=== PATIENT | male | born 1955 ===

== ENCOUNTER 2017-06-01 07:30 | Inpatient (IN) | payer OTHER ==
[2017-05-16 09:24] VITALS: BMI 31.1
--- NOTE | 2017-06-15 07:37 | HP ---
HISTORY OF PRESENT ILLNESS: A 62-year-old gentleman severe low back pain for 4 years, on the job accident, 2011. Since then, severe low lumbar pain, difficulty sitting for too long, lying too long, painful left lateral thigh. Denies any weakness or numbness. He has had 3 years of physiotherapy, 6 to 8 different injections in his back, multiple medications. PAST MEDICAL HISTORY: Hypertension. ALLERGIES: NO KNOWN DRUG ALLERGIES. SOCIAL HISTORY: No smoking, no alcohol, no illicit drug use. PERSONAL HISTORY: , 7 children. PHYSICAL EXAMINATION: MUSCULOSKELETAL: He does have good strength throughout. Sensation is grossly intact, 1+ reflexes. Tenderness to palpation in low lumbar spine. Range of motion is limited to extension and flexion. Baseline gait within normal limits. MRI demonstrates significant prolapse and desiccation of L4-L5, bilateral foraminal stenosis. ASSESSMENT: Over several of his visits, I discussed with him the possibility of performing decompression, fixation, and fusion of L4-L5. We went over the nature of the procedure. Potential risks, complications, realistic chances of success and recovery time. I answered all his questions. He fully understood all the above, was interested in proceeding, being admitted now for L4-L5, posterior lumbar interbody fusion. Jadon Stern MD
[2017-06-15] MEDS ORDERED: ceFAZolin IV 1 gm in Dextrose 0 GM/0 ML BAG IVPB ONE (08:52)
[2017-06-15] MEDS ORDERED: Absorbable Gelatin Sponge Size 100 ONE (08:52)
[2017-06-15] MEDS ORDERED: Lidocaine/Epinephrine 1% 1:100000 10 ML IJ ONE (08:53)
[2017-06-15] MEDS ORDERED: Thrombin Topical 5,000 Int Units Spray Kit ONE (08:54)
[2017-06-15] MEDS ORDERED: Bacitracin 50,000 UNIT in Sodium Chloride 0.9% Irrig 1,000 ML IR SCH (09:30)
[2017-06-15] MEDS ORDERED: Bupivacaine Liposomal Inj 20 ml INFIL ONE (09:30)
[2017-06-15] MEDS ORDERED: Remifentanil 1 mg/3 ml Vial IV ONE (09:33)
[2017-06-15] MEDS ORDERED: Propofol 10 mg/ml 1,000 MG/100 ML VIAL ONE ×2 (09:33)
[2017-06-15] MEDS ORDERED: Propofol 10 mg/ml Inj (20 ML) ONE (09:53)
[2017-06-15] MEDS ORDERED: Midazolam 2 MG/2 ML VIAL ONE (09:53)
[2017-06-15] MEDS ORDERED: Phenylephrine 10 mg/ml Inj ONE (09:57)
[2017-06-15] MEDS ORDERED: Succinylcholine Chloride 20 mg/ml Syr (5 ml) IV ONE (09:59)
[2017-06-15] MEDS ORDERED: ceFAZolin IV 2 gm in Dextrose 2 GM/50 ML BAG IVPB ONE (10:12)
[2017-06-15] MEDS ORDERED: Rocuronium 10 mg/ml (5 ml) ONE (10:17)
[2017-06-15] MEDS ORDERED: ePHEDrine 50 mg/ml Inj ONE (11:02)
[2017-06-15] MEDS: Bupivacaine HCl 0.5% PF (10 ml) Inj ONE ×2 (11:13→13:15)
[2017-06-15] MEDS ORDERED: Morphine 4 MG/ML VIAL ONE (13:31)
[2017-06-15] MEDS ORDERED: Labetalol 25mg/5ml Syringe ONE (13:35)
[2017-06-15] MEDS ORDERED: HYDROmorphone 0.5 mg/0.5 ml ISec IVP PRN (14:01)
[2017-06-15] MEDS: Potassium Ch 20mEq in D5-1/2NS 1,000 ML IV SCH (15:00)
--- NOTE | 2017-06-15 15:06 | RAD ---
PROCEDURE: Intraoperative Fluoroscopy. HISTORY: LUMBAR DISC DISPLACEMENT FINDINGS: Fluoroscopic assistance was provided. 43.0 seconds fluoroscopy time utilized during this procedure. Radiation dose = 13.43 mGy. Please refer to the operative report for additional details.
[2017-06-15 21:39] VITALS: RESP 20
[2017-06-16] MEDS: Potassium Ch 20mEq in D5-1/2NS 1,000 ML IV SCH ×3 (00:48→20:45)
--- NOTE | 2017-06-16 08:53 | CP.PCM.PN ---
Subjective - Date & Time of Evaluation Date of Evaluation: 06/16/17 Time of Evaluation: 08:52 - Subjective Subjective: POD 1 doing well c/o inc pain only 5/5 throughout nl sens P OOB PT Objective - Vital Signs/Intake and Output Vital Signs (last 24 hours): Temp Pulse Resp BP Pulse Ox 98.7 F 99 H 20 150/72 96 06/16/17 04:00 06/16/17 04:00 06/16/17 04:00 06/16/17 04:00 06/16/17 04:00 Intake and Output: 06/16/17 06/16/17 06:59 18:59 Intake Total 2070 Output Total 1600 Balance 470 - Medications Medications: Current Medications Acetaminophen (Tylenol 325mg Tab) 650 mg PO Q6 PRN PRN Reason: Fever >100.4 F Home Med (Patient's Own Medication) 1 tab PO DAILY [facility] Hydromorphone/Sodium Chloride (Dilaudid Director [employer] Management) 2.4 mg IV Q4H PRN; Protocol PRN Reason: Pain, severe (8-10) Last Admin: 06/15/17 16:00 Dose: 2.4 mg Potassium Chloride/Dextrose/Sod Cl (Potassium Chl 20 Meq In D5-1/2ns) 1,000 mls @ 100 mls/hr IV .Q10H [facility] Last Admin: 06/16/17 00:48 Dose: 100 mls/hr Pneumococcal Polyvalent Vaccine (Pneumovax 23 Vaccine) 0.5 ml IM .ONCE ONE Stop: 06/18/17 10:01
--- NOTE | 2017-06-16 09:24 | OP ---
PROCEDURE DATE: 06/15/2017. PREOPERATIVE DIAGNOSIS: Lumbar disk derangement. POSTOPERATIVE DIAGNOSIS: Lumbar disk derangement. PROCEDURE: L4-L5 decompression diskectomy, interbody fusion, segmental pedicle screw fixation, posterolateral fusion with iliac autograft. SURGEON: Jadon Stern MD CO-SURGEON: Horace Ashley MD. ANESTHESIA: General endotracheal. ESTIMATED BLOOD LOSS: 300 mL, 125 mL recovered via CellS[facility]. COMPLICATIONS: None. IDENTIFICATION: The patient is status post an accident severe low back pain. He had radiating radicular pain into the left lateral thigh. Imaging work with MRI documented significant disk derangement with large annular tear and significant left foraminal compromise at the L4-L5 level. He failed extensive conservative treatment. He was offered operative intervention by decompression, diskectomy, interbody fusion, and segmental pedicle screw fixation. The nature of the procedure, the rationale behind it, all pertinent potential risks and complications, realistic chance of success were discussed at length, with him in detail through a middle school librarian. All his questions were answered. He fully understood the above and elected to proceed as offered. PROCEDURE: The patient was taken to the operating room. He was hooked up to neurophysiological monitoring. He was carefully intubated, anesthetized and placed on the OR table in a prone position on a Artur frame. Care was taken to protect his face, eyes, endotracheal tube, and all bony prominences. The entire low back region was scrubbed, painted, and draped in the usual sterile manner. Incision was localized with lateral fluoroscopy, traced out overlying the spinous processes of L3 down to L5. After prepping and draping, the incision was made with a #10 blade knife carried down to the level of the fascia. The Bovie cautery was used to incise the fascia, strip the paraspinal muscles, the spinous processes and laminae of L4 and L5. Confirmatory x-ray was taken. The exposure was widened out laterally to expose the entire upgoing and downgoing pars and the intervening entire 4, 5 to 6. Bleeding controlled throughout with Bovie cautery and thrombinated Gelfoam. We exposed down to just at the beginning of the take off to the transverse processes. At this point, we performed bone harvestation. A 5-gauge trocar was inserted directly into the right superior posterior iliac crest approximately 90 mL of bone marrow aspirated. This bone marrow was then spun down to obtain mesenchymal cells, which were then later used in the fusion, impregnated primarily on collagen hydroxyapatite sponges. The decompression was begun with the Leksell rongeur, removing the inferior spinous process of 4 and sitting down the entire 4 lamina. This bone was also saved and later used in the fusion. A Kerrison rongeur was then used to complete the inferior two-thirds of the four laminectomy, performed generous medial facetectomies bilaterally. The L5 nerve roots were completely unroofed and traced down to the level of the pedicle. Additionally, the foramina were widened with a Kerrison. A [employer] instrument was used to inspect each foramen, particularly on the left side to confirm good decompression of the exiting nerve root. We widely exposed the disk to perform the diskectomy, the overlying epidural vein were coagulated. At this point, we began the diskectomy, the right L5 nerve root generally retracted medially. The disk was then incised grossly, and the disk material with the use of pituitary rongeurs. We then used 8 through 12-mm fareed. We trialed a 13 mm but this immediately dug into the end plate and was aborted and thus we chose to go ahead with a 9 x 11 mm fusion cage. Large curettes were used to decorticate the end plates above and below. This identical procedure was performed back on the left side, again to ensure that a 30 mm cage would be too large, we placed a 12 mm spacer there and took an x-ray and this was already seen to be at the level or perhaps beyond the end plate thus making a 13 scraper and cage untenable. The endplates above and below were then decorticated. Bone graft was then liberally packed into disk space, particularly anterolaterally and medially to conclude. Chopped up product of decompression, additional allograft and marrow impregnated sponges. We then placed a 9 x 11 carbon-fiber fusion cage, packed with all the above reference material until it was well-seated and countersunk. This identical procedure was then performed back on the original right side. Both visual inspection, lateral fluoroscopy, confirmed excellent position with both of these implants. At this point, we used the high-speed drill to decorticate the lateral surfaces which included the lateral facet and lateral pars at just beginning of the transverse processes. We then placed a , used technique of using contralateral fluoroscopy, using that and visual inspection to identify the particular entrance. Using a high-speed drill to drill to the cortical bone, passing gear shift down the barrel of the pedicle into the vertebrae. Using a ball-tip probe to sound the passage way to ensure there was no evidence of breach and then placing the appropriate-sized screw. Additionally, the gear shift and the screws were all stimulated with electrical current, while monitoring EMG activity to ensure there was no evidence of breach. Using this technique, we placed a 6.0 diameter screws throughout. There was a mix of 45 mm and 50 mm length screws placed. No screw elicited any EMG activity, lower than 20 milliamps. Both AP and lateral x-ray confirmed excellent position of all 4 screws. At this point, we placed the appropriate sized locking sanchez into the two screw and receptacles on each side. Locking nuts were then placed and torque-wrenched tight. We then placed a cross connector and tied it 3 connecting points and torque-wrenched tight. We then ensured, there was no foreign matter, bone etc in and around the peridural area. This was gently irrigated with antibiotic solution. A layer of powdered Gelfoam followed by a layer of solid Gelfoam, was placed in the peridural space. We performed a final AP and lateral x-ray, we confirmed excellent position of the entire construct. All remaining bone grafts were then liberally packed into the lateral gutters to achieve a posterolateral fusion. At this point, the muscle was reapproximated using a tight interrupted 0 Vicryl stitch. The fascia closed using a tight interrupted 0 Vicryl stitch. The wound copiously irrigated with antibiotic solution. The subcu closed in two separate layers in 2-0 Vicryl. The skin was closed with a running 3-0 Monocryl stitch, benzoin and Steri-Strips. A dressing was applied. The patient was then turned back onto a supine position on a stretcher. He was easily extubated, noted to be moving all groups of both lower extremities with excellent strength on his way to the recovery room. All counts were correct. Neurophysiological monitoring remain stable over the course of the procedure with the exception of couple of small bursts of EMG activity. There were no complications. Jadon Stern MD [facility] # [id number]
[2017-06-16] MEDS: OLMESARTAN 20 MG PO SCH (09:51)
--- NOTE | 2017-06-17 06:49 | OP ---
PROCEDURE DATE: 06/15/2017. PREOPERATIVE DIAGNOSES: Disk derangement with disk prolapse L4-5 and left lumbar radiculopathy. POSTOPERATIVE DIAGNOSES: Disk derangement with disk prolapse L4-5 and left lumbar radiculopathy. OPERATIONS: 1. Posterior lumbar interbody and lateral fusion, L4-5. 2. Use of intervertebral devices. 3. Use of non-segmental spinal instrumentation. 4. Use of autograft by means of bone marrow aspiration. SURGEON: Horace Ashley MD CO-SURGEON: Jadon Stern MD. ANESTHESIA: General endotracheal tube intubation. DESCRIPTION OF PROCEDURE: The patient was brought to the operating room, general anesthesia was achieved. Intravenous antibiotics were administered while spinal cord monitoring leads were placed throughout the patient's body. Real time monitoring was done by coordinate measuring machine technician in the room, remote monitoring done by physician as well. Sequential compression boots were placed each of the patient's leg and after the antibiotics were administered, a Smith catheter was inserted. The patient was then gently transferred onto the operating table and placed prone on a Artur frame, keeping his abdomen free from pressure anteriorly. Care was taken to protect the elbows and knees from pressure points. A sterile drape was used to seal off the patient's peroneal region from the operative field and his back was sterilely prepped and draped. The level of incision was noted on fluoroscopy and infiltrated with lidocaine with epinephrine. An incision was made sharply in the midline and taken down through subcutaneous tissues using sharp and blunt dissection. Hemostasis was achieved using electrocautery. The fascia was divided and the tissue stripped laterally off the spinous processes and lamina out to the level of the facet joints. The soft tissue attachments were cleared off the intralaminar spaces so that we can identify the pars on each side at each level as well. Hemostasis was achieved with thrombinated Gelfoam powder as well as electrocautery. Fluoroscopic views confirm we are at the L4-5 levels and the L4 pedicle to L5 pedicle. A Leksell rongeur was used to remove the spinous process and thinned down the lamina in the midline. Laminectomy was then carried out in caudad and cephalad fashion, first in the midline and then laterally to each side. The L4 neuroforamen on the left side was seen to be particularly tight, confirming his preoperative studies. Foraminotomies were carried out at each level on each side until we could easily pass Artur tool out of the neuroforamen. Laminectomy was carried out wide enough to the level of the disk space until we could easily pass the broach, indicative of enough room to pass the intervertebral device subsequently. Hemostasis was achieved again with thrombinated Gelfoam powder as well as bipolar cautery. At that time, a trocar was placed in the posterior right ileum and 90 mL of bone marrow aspirate was obtained. This was sterilely passed off to the coordinate measuring machine technician who processed it to harvest system. Thrombinated Gelfoam powder was used for hemostasis at the donor site. The collected mesenchymal stem cells from the harvest system were then passed back to the OR table. This is used to soak strips and cubes of the Conform sponge as well as process through the IC chamber. The IC chamber bone along the patient's laminar bone, and Optium putty were combined to make an excellent bone grafting substrate. We then proceeded with the interbody fusion. The thecal sac was gently retracted and the annulus on the right side incised sharply. Disk material was removed with pituitary rongeur as well as the endplate fareed upto including size 12. Ring and spoon curettes were then used to remove any remaining tissue from the disk space. The patient appeared to have prolapsed disk as there was pressure along the ventral surface of the sac, but once that was removed, there was less pressure noted. We then moved to the left side, where again the thecal sac was retracted, the annulus incised and the remaining disk material removed with the endplate fareed as well pituitary rongeur and the ring and spoon curettes. Once the disk space is cleared, the bone grafting substrate along with the marrow-soaked cubes of Conform sponge were packed into the disc space and a 9 x 11 graft packed cage was tamped into place and countersunk. We came back to the right side and put in some more bone grafting substrate with the Conform cubes and another 9 x 11 graft packed cage was tamped into place and countersunk. Visually, they both appeared to be in good position. We then used a high speed drill to decorticate the L4-5 facet joints in each sides as well as interlaminar spaces. Under fluoroscopic guidance, the drill was used to create the entry point for the right L4 pedicle. The gearshift tool was used to create the channel through the pedicle and the bone integrity was confirmed with a ball tip probe and a 6.0 x 50 mm EXPEDIUM screw was inserted. Similar technique was used on the left side with high speed drill, the gearshift tool, and ball tip probe and a 45 x 6.0 mm EXPEDIUM screw was inserted. Stimulation of the gearshift tool on each side along with the shank and top of each screw revealed no electrophysiologic abnormalities. We then moved down to the L5 level where again the high speed drill was used to create the entry point for the pedicle and visualized under fluoroscopy and the gearshift tool used to create the channel for the screw. Once the bony integrity was confirmed with the ball tip probe, a 6.0 x 50 mm screw was inserted. Again, the same technique was used on the left side and another 50 mm x 6.0 EXPEDIUM screw was inserted. Again, stimulation revealed no electrophysiologic abnormalities. The midline was irrigated with antibiotics solution and hemostasis achieved with bipolar cautery as well as Thrombinated Gelfoam powder. A large piece of solid Gelfoam was used to cover to the exposed neural elements. Two precut 35 mm lordotic rods were used to connect the 2 screws on each side and A5 SFX CrossLink was used to connect the two rods to add rotational stability. The remaining strips of Conform and the bone grafting substrate were packed along the sanchez and in the facet joint on each side. The final AP and lateral fluoroscopic views showed excellent position of the intravertebral devices as well as the hardware. The wound was then closed in layers with interrupted sutures of 0 Vicryl for the muscle and the fascia. 0.5% Marcaine as well as Exparel was injected in the paraspinal tissue to help with postoperative pain relief. The subcutaneous tissue was approximated using interrupted sutures of 2-0 Vicryl and the skin was closed with a running subcuticular suture of 3-0 Monocryl. Steri-Strips and sterile dressing were applied and the patient was gently transferred back onto his bed in the supine position. He was awakened and extubated. He was taken to recovery room in stable condition, having tolerated the procedure well. Estimated blood loss was 300 mL. He received 2 L of Crystalloid during the operation as well as 125 mL back from the Cell Saver and he had urine output of 125 mL for the case. He was actively moving all extremities at the time of his transfer and no permanent electrophysiologic abnormalities were noted at the completion of the case. Horace Ashley MD
[2017-06-17] MEDS: Potassium Ch 20mEq in D5-1/2NS 1,000 ML IV SCH ×2 (07:56→16:00)
[2017-06-17] MEDS: OLMESARTAN 20 MG PO SCH (09:44)
[2017-06-17] MEDS ORDERED: Influenza Vaccine 60 mcg/0.5 mL SYR (4YR UP) IM ONE (10:00)
--- NOTE | 2017-06-17 11:30 | CP.PCM.PN ---
Subjective - Date & Time of Evaluation Date of Evaluation: 06/17/17 Time of Evaluation: 11:26 - Subjective Subjective: SPINE - POD #2 Pt OOB in chair. Amb to BR earlier. Complains of pain at operative site. Voiding. ? flatus yet. Taking po. VSS. Afebrile. Moves extremities actively. Neuro intact. Plan: Cont to mobilize as tolerated. Has 5-6 steps to get into one level apartment. Will be seen by PT today and tomorrow, and hopefully be able to d/c to home afterwards. Will change to oral analgesics today. Objective - Vital Signs/Intake and Output Vital Signs (last 24 hours): Temp Pulse Resp BP Pulse Ox 98.5 F 64 20 116/63 97 06/17/17 08:24 06/17/17 08:24 06/17/17 08:24 06/17/17 08:24 06/17/17 08:24 Intake and Output: 06/17/17 06/17/17 06:59 18:59 Intake Total 1140 Output Total 250 Balance 890 - Medications Medications: Current Medications Acetaminophen (Tylenol 325mg Tab) 650 mg PO Q6 PRN PRN Reason: Fever >100.4 F Home Med (Patient's Own Medication) 1 tab PO DAILY [facility] Last Admin: 06/17/17 09:44 Dose: 1 tab Hydromorphone/Sodium Chloride (Dilaudid [employer]) 2.4 mg IV Q4H PRN; Protocol PRN Reason: Pain, severe (8-10) Last Admin: 06/17/17 04:29 Dose: 2.4 mg Potassium Chloride/Dextrose/Sod Cl (Potassium Chl 20 Meq In D5-1/2ns) 1,000 mls @ 100 mls/hr IV .Q10H [facility] Last Admin: 06/17/17 07:56 Dose: 100 mls/hr Pneumococcal Polyvalent Vaccine (Pneumovax 23 Vaccine) 0.5 ml IM .ONCE ONE Stop: 06/18/17 10:01
[2017-06-17] MEDS: oxyCODONE 20 mg ER Tab (oxyCONTIN) PO SCH ×2 (12:05→22:06)
[2017-06-17] MEDS: Oxycodone/Acetaminophen 5/325 mg Tab PO PRN (19:11)
[2017-06-18] MEDS: Potassium Ch 20mEq in D5-1/2NS 1,000 ML IV SCH (02:10)
[2017-06-18] MEDS: Oxycodone/Acetaminophen 5/325 mg Tab PO PRN (04:57)
[2017-06-18 08:14] VITALS: BP 114/57; PULSE 72; TEMP 98.5; O2SAT 96
[2017-06-18] MEDS ORDERED: Pneumococcal 23-Valent Vaccine IM ONE (10:00)
[2017-06-18] MEDS: oxyCODONE 20 mg ER Tab (oxyCONTIN) PO SCH (10:01)
[2017-06-18] MEDS: OLMESARTAN 20 MG PO SCH (10:03)
--- NOTE | 2017-06-18 11:30 | CP.PCM.PN ---
Subjective - Date & Time of Evaluation Date of Evaluation: 06/18/17 Time of Evaluation: 11:26 - Subjective Subjective: SPINE - POD #3 Pt sitting at bedside. Amb w PT today. Able to do 10 steps. Complains of post- op back pain, but different than pre-op pain. VSS. Afebrile. Neuro remains intact. Plan: Discharge to home today. Call office on Tuesday to schedule f/u visit w Dr. Stern. Objective - Vital Signs/Intake and Output Vital Signs (last 24 hours): Temp Pulse Resp BP Pulse Ox 98.5 F 72 20 114/57 L 96 06/18/17 07:15 06/18/17 07:15 06/18/17 07:15 06/18/17 07:15 06/18/17 07:15 Intake and Output: 06/18/17 06/18/17 06:59 18:59 Intake Total 500 Output Total 480 Balance 20 - Medications Medications: Current Medications Acetaminophen (Tylenol 325mg Tab) 650 mg PO Q6 PRN PRN Reason: Fever >100.4 F Home Med (Patient's Own Medication) 1 tab PO DAILY [facility] Last Admin: 06/18/17 10:03 Dose: 1 tab Potassium Chloride/Dextrose/Sod Cl (Potassium Chl 20 Meq In D5-1/2ns) 1,000 mls @ 100 mls/hr IV .Q10H [facility] Last Admin: 06/18/17 02:10 Dose: Not Given Oxycodone HCl (Oxycontin Extended Release Tab) 20 mg PO Q12 [facility] Last Admin: 06/18/17 10:01 Dose: 20 mg Oxycodone/Acetaminophen (Percocet 5/325 Mg Tab) 1 tab PO Q4H PRN PRN Reason: Pain, Mild (1-3) Stop: 06/20/17 11:33 Last Admin: 06/18/17 04:57 Dose: 1 tab
== END 2017-06-18 16:30 | disposition home or self-care (01) | DRG 460 ==
LOC: C.9S 06-15 07:14 → C.6T 06-15 14:18
PROVIDERS: ADMIT Neurological Surgery; ATTEND Neurological Surgery
PROC: 0SB20ZZ Excision of Lumbar Vertebral Disc, Open Approach (ICD-10-PCS; 2017-06-15)
PROC: 0SH004Z Insertion of Internal Fixation Device into Lumbar Vertebral Joint, Open Approach (ICD-10-PCS; 2017-06-15)
PROC: 07DR3ZZ Extraction of Iliac Bone Marrow, Percutaneous Approach (ICD-10-PCS; 2017-06-15)
PROC: 4A11X4G Monitoring of Peripheral Nervous Electrical Activity, Intraoperative, External Approach (ICD-10-PCS; 2017-06-15)
PROC: 0SG00AJ Fusion of Lumbar Vertebral Joint with Interbody Fusion Device, Posterior Approach, Anterior Column, Open Approach (ICD-10-PCS; principal; 2017-06-15 10:00)
DX: M51.16 Intervertebral disc disorders with radiculopathy, lumbar region (principal); I10 Essential (primary) hypertension; M51.27 Other intervertebral disc displacement, lumbosacral region